=== PATIENT | male | born 1995 | race Asian ===

== ENCOUNTER → 2020-10-27 08:30 | Outpatient (CLI) | payer OTHER, SELFPAY ==
--- NOTE | 2020-10-27 | DI.MRI.S_ITS ---
PROCEDURE: MR WRIST LT WO CON INDICATIONS: ganglion, unspecified TECHNIQUE: Noncontrast coronal proton density fast spin echo and T2 fast spin echo with fat saturation; coronal 3-D gradient echo, axial T1 spin echo and T2 fast spin echo with fat saturation, sagittal T1 spin echo through the wrist. COMPARISON: None. FINDINGS: Image quality: Excellent. Bones and cartilage: The carpal bones are normally aligned. No bone marrow contusions or fractures. No evidence for avascular necrosis. Overlying cartilage surfaces appear normal. Carpal ligaments: The scapholunate and lunotriquetral ligaments appear intact. In the absence of intra-articular contrast, the extrinsic carpal ligaments are not well identified. On sagittal images, the pisohamate ligament appears intact. Triangular fibrocartilage complex: The triangular fibrocartilage appears intact. The adjacent meniscal homolog appears normal in the absence of intra-articular contrast. The extensor carpi ulnaris tendon is normal in location and morphology. Tendons and soft tissues: The carpal tunnel structures appear normal, including the median nerve. The ulnar nerve appears normal within Guyon's canal. All six extensor tendon compartments demonstrate normal morphology, without pathologic tendon sheath fluid. 2 x 0.6 x 1.3 cm oval fluid signal structure is seen in dorsal deep soft tissue of wrist at the level of radiocarpal joint and situated between extensor digitorum and indices tendons and extensor pollicis longus tendon most consistent with ganglion cyst. IMPRESSION: 1. 2 x 0.6 x 1.3 cm ganglion cyst in deep soft tissue over dorsal aspect of radiocarpal joint and situated between extensor digitorum and indices tendons and extensor pollicis longus tendon. 2. No marrow edema. No fracture or dislocation. No suspicious intraosseous lesion. 3. No gross tendon or ligament pathology is seen. Dictated by: Brenden Nino M.D. on 10/27/2020 at 9:39 Approved by: Brenden Nino M.D. on 10/27/2020 at 11:24
== END ==
PROVIDERS: Referring Provider Family Medicine; Visit Provider Family Medicine
DX: M67.432 Ganglion, left wrist (principal)
CPT/HCPCS: 73221